=== PATIENT | female | born 1995 | race Caucasian/White ===

== ENCOUNTER 2017-02-14 15:08 | Emergency (ER) | payer OTHER ==
[2017-02-14 15:25] VITALS: BP 140/74
--- NOTE | 2017-02-14 16:03 | ERNOTE ---
Lower Extremity HPI - Narrative Date of Service: 02/14/17 - General Lower Extremities Pain: leg: right Source: patient Exam Limitations: no limitations - Immun/Allergies/Home Medications Immunizations: IMMUNIZATION HX Immunizations Up to Date Yes History of Influenza Vaccine No Hx Pneumococcal Vaccination No Allergies/Adverse Reactions: Allergies Allergy/AdvReac Type Severity Reaction Status Date / Time No Known Allergies Allergy Verified 02/14/17 15:25 Home Medications: HOME MEDICATIONS Cephalexin Monohydrate [Keflex] 500 mg PO QID #40 cap 02/14/17 [Last Taken Unknown] HYDROcodone/ACETAMINOPHEN [Dickey 5-325 Tablet] 1 tab PO Q4H PRN #20 tab [Last Taken Unknown] - History of Present Illness Narrative: patient was mowing last week felt something strike leg, went to other hospital has ilene placed , has had continued pain in calf Occurred: last week Location of Incident: home Method of Injury: Reports: direct blow Loss of Consciousness: Reports: no loss of consciousness Modifying Factors - (Worsens): Reports: movement Associated Symptoms: Reports: unable to bear weight Other Injuries: Reports: none Review of Systems - Review of Systems Constitutional: Present: See HPI EYE: Present: no symptoms reported ENT: Present: no symptoms reported Respiratory: Present: no symptoms reported Cardiology: Present: no symptoms reported Gastrointestinal/Abdominal: Present: no symptoms reported Genitourinary: Present: no symptoms reported Musculoskeletal: Present: muscle pain, other - pain and swelling in posterior calf Skin: Present: no symptoms reported Neurological: Present: no symptoms reported Endocrine: Present: no symptoms reported - Patient's Past Medical History Patient History - Medical: Anemia, GERD, Other Patient History - Cardiac/Respiratory: No pertinent hx Patient History - Cancer: No Hx of Cancer Patient History - Surgical Procedures: Other - Family History Mother Family History - Medical: No pertinent hx Father Family History - Medical: No pertinent hx Family History - Cardiac/Respiratory: No pertinent hx - Social History Living Situations: alone Abuse History: No History of abuse Psych History: No pertinent hx Smoking Status: Current every day smoker Have you smoked in the past 12 months: Yes Alcohol Use: none Drug Use: none - Immunizations Immunizations Up to Date: Yes Hx Pneumococcal Vaccination: No History of Influenza Vaccine: No Physical Exam - Physical Exam General Appearance: Present: mild distress Head Exam: Present: normal inspection, no evidence of injury Eye Exam: Normal inspection: bilateral, PERRL: bilateral, EOMI: bilateral Ears, Nose, Throat: Present: normal ENT inspection Neck: Present: normal inspection Respiratory: Present: no respiratory distress, normal breath sounds, no accessory muscle use, chest nontender, lungs clear Cardiovascular/Chest: Present: regular rate, rhythm, no murmur, normal peripheral pulses Peripheral Pulses: N=norm/S=strong/W=weak/B=bound/A=absent: Carotid (R): Normal , Carotid (L): Normal, Radial (R): Normal, Radial (L): Normal, Femoral (R): Normal, Femoral (L): Normal, Dorsalis-pedis (R): Normal, Dorsalis-pedis (L): Normal Gastrointestinal/Abdominal: Present: normal bowel sounds, nontender, nondistended, soft, no organomegaly Extremity Exam: Present: calf tenderness, other - 3 ilene antior lower leg Neurological Exam: Present: alert, oriented, normal mood/affect, no motor/ sensory deficits DTR: N=norm/NB=norm/brisk/A=abs/DD=dull/dimin/HC=hyperactive: Bicep (R): Normal , Bicep (L): Normal, Tricep (R): Normal, Tricep (L): Normal, Knee (R): Normal, Knee (L): Normal, Ankle (R): Normal, Ankle (L): Normal Skin Exam: Present: normal color, warm/dry Lymphatic Exam: Present: no adenopathy ED Progress - Vital Signs Patient's Vital Signs:: I have reviewed the patient's vital signs. Vital Signs: Vital Signs 02/14/17 15:21 Temperature 37.6 C H Pulse Rate 90 Respiratory 12 Rate Blood Pressure 140/74 O2 Sat by Pulse 100 Oximetry - Progress/Reassessment Chief Complaint: Lower Extremity Pain/ Injury - Transfer of Care Expected Disposition: Discharge Plan - Plan Plan: case discussed with dr spaulding to see on wednesday in clinic Departure Clinical Impression: Foreign bodies - Departure Disposition: Home self-care Condition: Fair Instructions: Wound Infection, [id number] Referrals: Ale Cifuentes FNP [Primary Care Provider] - Prescriptions: Cephalexin Monohydrate [Keflex] 500 mg PO QID #40 cap HYDROcodone/ACETAMINOPHEN [Dickey 5-325 Tablet] 1 tab PO Q4H PRN #20 tab PRN Reason: Pain
== END 2017-02-14 16:07 | disposition home or self-care (01) ==
LOC: ER 15:08
DX: S81.821A Laceration with foreign body, right lower leg, initial encounter (principal); W45.8XXA Other foreign body or object entering through skin, initial encounter; Y93.H9 Activity, other involving exterior property and land maintenance, building and construction; F17.200 Nicotine dependence, unspecified, uncomplicated

== ENCOUNTER 2017-02-19 12:38 | Day surgery (SDC) | payer OTHER ==
[2017-02-19] MEDS: RINGER'S SOLUTION,LACTATED 1,000 ML IV PRN (13:20)
[2017-02-19] MEDS: ceFAZolin SODIUM 1 GM VIAL IV PRN (14:45)
[2017-02-19] MEDS: LIDOCAINE HCL/EPINEPHRINE 50 ML VIAL IJ ONE ×2 (14:55)
[2017-02-19 16:59] VITALS: BP 106/57
== END 2017-02-19 12:39 | disposition home or self-care (01) ==
LOC: AMB 12:38
PROVIDERS: ATTEND Orthopaedic Surgery
PROC: 0JCN0ZZ Extirpation of Matter from Right Lower Leg Subcutaneous Tissue and Fascia, Open Approach (ICD-10-PCS; principal; 2017-02-19 17:30)
DX: S81.841D Puncture wound with foreign body, right lower leg, subsequent encounter (principal); F17.210 Nicotine dependence, cigarettes, uncomplicated; M79.5 Residual foreign body in soft tissue